=== PATIENT | male | born 1995 | race Caucasian/White ===

== ENCOUNTER 2023-01-16 10:32 | Emergency (ER) | payer OTHER ==
[~2023-01-16] VITALS: Ht 195.6 cm; Wt 97.5 kg
[2023-01-16] MEDS ORDERED: TETANUS/DIPHTHERIA TOXOID [ADULT] 0.5 ML VIAL IM ONE (12:00)
[2023-01-16 13:28] VITALS: BP 132/78; PULSE 74; RESP 18; O2SAT 98
== END 2023-01-16 13:29 | disposition home or self-care (01) ==
LOC: EDH 10:32
DX: S61.011A Laceration without foreign body of right thumb without damage to nail, initial encounter (principal); W45.8XXA Other foreign body or object entering through skin, initial encounter; Y93.89 Activity, other specified; Y92.89 Other specified places as the place of occurrence of the external cause; Y99.8 Other external cause status
CPT/HCPCS: 90471; 90714